=== PATIENT | male | born 1970 | race Two or more races ===

== ENCOUNTER 2021-02-03 09:00 | Outpatient (CLI) | payer OTHER | END 2021-02-03 09:15 | disposition home or self-care (01) | LOC: PPH VACUNA 09:00 | PROVIDERS: ATTEND Emergency Medicine Pediatric Emergency Medicine | DX: Z23 Encounter for immunization (principal) ==

== ENCOUNTER 2024-09-05 07:46 | Outpatient (CLI) | payer OTHER | END 2024-09-05 07:56 | disposition home or self-care (01) | LOC: RAD 07:46 | PROVIDERS: ATTEND Chiropractor | DX: M54.50 Low back pain, unspecified (principal); M46.1 Sacroiliitis, not elsewhere classified ==